=== PATIENT | female | born 1965 | race Caucasian/White ===

== ENCOUNTER 2021-03-06 08:07 | Outpatient (CLI) | payer BC | END 2021-03-06 08:08 | disposition home or self-care (01) | LOC: BICMAMMO 08:07 | PROVIDERS: ATTEND Obstetrics & Gynecology | DX: Z12.31 Encounter for screening mammogram for malignant neoplasm of breast (principal); Z91.89 Other specified personal risk factors, not elsewhere classified | CPT/HCPCS: 77063; 77067 ==

== ENCOUNTER 2022-01-20 08:33 | Outpatient (CLI) | payer BC | END 2022-01-20 08:34 | disposition home or self-care (01) | LOC: BICRAD 08:33 | PROVIDERS: ATTEND Family Medicine | DX: M79.644 Pain in right finger(s) (principal) ==

== ENCOUNTER 2022-03-17 07:59 | Outpatient (CLI) | payer BC | END 2022-03-17 08:00 | disposition home or self-care (01) | LOC: BICMAMMO 07:59 | PROVIDERS: ATTEND Obstetrics & Gynecology | DX: Z12.31 Encounter for screening mammogram for malignant neoplasm of breast (principal); Z91.89 Other specified personal risk factors, not elsewhere classified | CPT/HCPCS: 77063; 77067 ==

== ENCOUNTER 2022-06-18 08:27 | Outpatient (CLI) | payer BC ==
[2022-06-18 09:57] LABS: #Eosinphils 0.1 10x3/uL (0.0-0.5); #Monocytes 0.4 10x3/uL (0.0-1.1); #Neutrophils 2.7 10x3/uL (1.5-8.4); %Basophils 0.6 % (0.0-2.0); %Eosinophils 1.2 % (0.0-6.0); Hemoglobin 13.7 g/dL (12.0-15.5); Mean Corpuscular HGB CONC 32.5 g/dL (32.0-36.0); Mean Corpuscular Hemoglobin 28.5 pg (27.0-33.0); Mean Corpuscular Volume 87.7 fl (81.6-98.3); Mean Platelet Volume 10.1 fl (7.4-10.4); Platelet Count 217 10x3/uL (150-450); RBC Distribution Width 12.3 % (11.5-14.5); Red Blood Cell (RBC) Count 4.81 10x6/uL (3.90-5.03)
== END 2022-06-18 08:28 | disposition home or self-care (01) ==
LOC: LABBT 08:27
PROVIDERS: ATTEND Orthopaedic Surgery Hand Surgery
DX: Z01.812 Encounter for preprocedural laboratory examination (principal); M20.011 Mallet finger of right finger(s)
CPT/HCPCS: 85025

== ENCOUNTER 2022-06-20 05:52 | Day surgery (SDC) | payer BC ==
[2022-06-18 13:57] VITALS: BMI 21.2
[2022-06-20] MEDS ORDERED: Bupivacaine PF 0.5% 30 ML VIAL ONE (06:47)
[2022-06-20] MEDS ORDERED: Neomycin-Polymyxin 1 ML AMP ONE (06:47)
[2022-06-20] MEDS ORDERED: Bacitracin Zinc Ointment 30 gm TUBE ONE (06:47)
[2022-06-20] MEDS ORDERED: CEFAZOLIN 2 GM VIAL ONE (06:57)
[2022-06-20] MEDS ORDERED: Sodium Chloride 0.9% 100 ML ONE (06:57)
[2022-06-20] MEDS ORDERED: fentaNYL PF 100 MCG/2 ML SYRINGE ONE (07:05)
[2022-06-20] MEDS ORDERED: Ketorolac Tromethamine 30 MG/ML VIAL ONE (07:06)
[2022-06-20] MEDS ORDERED: ePHEDrine Sulfate 50 MG/10 ML VIAL ONE (07:06)
[2022-06-20] MEDS ORDERED: Ondansetron PF 4 MG/2 ML Vial ONE (07:06)
[2022-06-20] MEDS ORDERED: Lidocaine 1% PF 5 ML VIAL ONE (07:06)
[2022-06-20] MEDS ORDERED: PROPOFOL 200 MG/20 ML VIAL ONE (07:06)
[2022-06-20] MEDS ORDERED: Dexamethasone 20 MG/5 ML VIAL ONE (07:06)
== END 2022-06-20 11:25 | disposition home or self-care (01) ==
LOC: SDC 05:52
PROVIDERS: ATTEND Orthopaedic Surgery Hand Surgery
PROC: 0PST04Z Reposition Right Finger Phalanx with Internal Fixation Device, Open Approach (ICD-10-PCS; principal; 2022-06-20)
PROC: 0LM70ZZ Reattachment of Right Hand Tendon, Open Approach (ICD-10-PCS; principal; 2022-06-20)
DX: S62.636K Displaced fracture of distal phalanx of right little finger, subsequent encounter for fracture with nonunion (principal); M20.011 Mallet finger of right finger(s); S66.316A Strain of extensor muscle, fascia and tendon of right little finger at wrist and hand level, initial encounter; W19.XXXD Unspecified fall, subsequent encounter
CPT/HCPCS: C1894; J1100; J1885; J2405; J2704; J3490; S0020

== ENCOUNTER 2023-04-03 08:28 | Outpatient (CLI) | payer BC | END 2023-04-03 08:29 | disposition home or self-care (01) | LOC: BICMAMMO 08:28 | PROVIDERS: ATTEND Obstetrics & Gynecology | DX: Z12.31 Encounter for screening mammogram for malignant neoplasm of breast (principal); Z91.89 Other specified personal risk factors, not elsewhere classified | CPT/HCPCS: 77063; 77067 ==